=== PATIENT | female | born 1995 | race Caucasian/White ===

== ENCOUNTER 2023-11-07 13:14 | Outpatient (RCR) | payer BC, MEDICAID, SELFPAY | END 2024-02-05 23:59 | disposition home or self-care (01) | LOC: ANHDMC 13:14 | PROVIDERS: Visit Provider Student in an Organized Health Care Education/Training Program | DX: O24.419 Gestational diabetes mellitus in pregnancy, unspecified control (principal); Z3A.00 Weeks of gestation of pregnancy not specified; Z71.89 Other specified counseling | CPT/HCPCS: G0108 ==

== ENCOUNTER 2024-02-20 12:13 | Outpatient (RCR) | payer BC, MEDICAID, SELFPAY ==
[2024-02-06 10:08] VITALS: BP 104/56; PULSE 90
[2024-02-20 12:57] VITALS: BP 121/63; PULSE 80
== END 2024-05-06 23:59 | disposition home or self-care (01) ==
LOC: ANHOBOP 12:13
PROVIDERS: Visit Provider Obstetrics & Gynecology
DX: O24.419 Gestational diabetes mellitus in pregnancy, unspecified control (principal); Z3A.34 34 weeks gestation of pregnancy; Z3A.36 36 weeks gestation of pregnancy
CPT/HCPCS: 59025

== ENCOUNTER 2024-03-02 05:48 | Inpatient (IN) | payer BC, MEDICAID, SELFPAY ==
[2024-03-02] VITALS (143 sets, daily range): BP systolic 80–133; BP diastolic 35–102; PULSE 62–177; RESP 16–18; TEMP 36.1–37.4; O2SAT 87–100; BMI 49.1
--- NOTE | 2024-03-02 06:38 | PM.IMHP ---
H&P: HPI History of Present Illness Date/Time: 03/02/24 06:38 Chief Complaint: Medical Induction of Labor Narrative: Maria A is a 29yo @ 38.1wks who presents for medical IOL due to A2GDM. She has been following with MFM regularly and doing regular testing. She reports good movement. Irregular contractions. No VB or LOF. Her is complicated by: - Obesity- pre-preg BMI 50- ASA daily, MFM referral - A2GDM - MFM referral; on insulin 10u BID + 6u TIDAC - h/o IUFD at 8 mo- ASA daily, will start weekly BPP 28w; NST 2x/wk at 32w - tobacco/THC use Review of Systems Constitutional: Constitutional: Denies chills, Denies fever(s) and Denies headache(s) Eyes: Eyes: Denies change in vision ENT: Denies headache(s) Cardiovascular: Cardiovascular: Denies chest pain and Denies dyspnea Respiratory: Respiratory: Denies dyspnea Genitourinary: Genitourinary: Denies abnormal vaginal bleeding and Denies vaginal discharge Neurologic: Denies headache(s) Psychiatric: Psychiatric: Denies anxiety and Denies depression [facility] Past Medical History Medical History Abnormal glucose tolerance in History of stillbirth Suppression of menses Family History Family History Mother Diabetes mellitus Cerebrovascular accident Father Diabetes mellitus Other Heart disease Social History Social History Smoking packs per day: 0.5 Smoking cigarettes per day: 10.0 Years smoked: 7 Smoking pack-years: 3.50 Smoking status: Former smoker Tobacco type: cigarettes Second hand tobacco smoke exposure: Yes Alcohol intake: former Substance use: never Substance use type: marijuana Last use: unsure Do You Feel Safe in your Home?: Yes Lack of Transportation: YES Lack of Food: Sometimes True Current Housing: I Have Housing Concerned About Future Housing: No Difficulty Paying Gas/Electric Bills: No Difficulty Paying for Meds: No Currently Unemployed: No Education: High School Diploma/GED Difficulty w/ Childcare or Family Care: No Living arrangements: with family Occupation/Education: occupation Gender identity (if verbalized by the patient): Female Sexual Orientation (if Verbalized by the Patient): Straight or Heterosexual Spiritual care concerns: No Meds Home Medications and Allergies Home Medications Medication Instructions Recorded Confirmed Type vits no.126-ferrous fum 1 tablet PO DAILY 08/21/23 02/26/24 History 28 mg iron-folic acid 800 mcg tablet (Classic ) aspirin 81 mg chewable tablet 81 mg PO DAILY 09/25/23 02/26/24 History insulin aspart U-100 100 unit/mL 6 unit subcut USEASDIRECTD 11/20/23 02/26/24 History (3 mL) subcutaneous pen (Novolog FlexPen U-100 Insulin aspart) insulin glargine 100 unit/mL (3 10 unit subcut QPM 11/20/23 02/26/24 History mL) subcutaneous pen (Lantus Solostar U-100 Insulin) Allergies Allergy/AdvReac Type Severity Reaction Status Date / Time No Known Allergies Allergy Verified 02/26/24 15:17 Exam Const: General: cooperative, no acute distress and obese Nutritional Appearance: obese Orientation/consciousness: patient oriented x3 Resp: Effort & Inspection: normal respiratory effort Cardio: Rate: regular rate GI: GI Palp: No abdominal tenderness : Other: FHT's: 130's/ mod marva/ + accels/ no decels - cat 1 TOCO: irregular ctxs Cervix: 4/50/-2 Membranes: AROM, clear 0738 Presentation: cephalic Skin: General skin exam: normal color Neuro: General: patient oriented x3 Extrem: General: normal to inspection Psych: Appearance: grossly normal Affect: normal affect Attitude: cooperative Assessment and Plan Assessment and plan (1) Insulin dependent gestational diabetes mellitus (GDM),
[2024-03-02 06:49] LABS: Basophils Percent Auto 0.3 % (0.2-1.2); Eosinophils Absolute Auto 0.1 K/mm3 (0-0.3); Eosinophils Percent Auto 1.1 % (0-4.4); Hemoglobin 11.5 g/dL (12.0-15.0); Immature Granulocyte Absolute 0.02 K/mm3 (0.00-0.031); Immature Granulocyte Percent A 0.3 % (0-0.5); Lymphocytes Absolute Auto 1.69 K/mm3 (0.9-3.2); Lymphocytes Percent Auto 26.7 % (18.3-44.2); Mean Corpuscular HGB Conc 31.9 g/dl (32-36); Mean Corpuscular Hemoglobin 28.5 pg (26-34); Mean Corpuscular Volume 89.3 fl (80-100); Mean Platelet Volume 10.3 fl (7.4-10.4); Monocytes Absolute Auto 0.6 K/mm3 (0.1-0.6); Monocytes Percent Auto 9.3 % (2.6-8.5); Neutrophils Absolute Auto 3.9 K/mm3 (1.3-6.7); Neutrophils Percent Auto 62.3 % (45.5-73.1); Platelet Count Result 236 k/mm3 (150-375); Red Blood Count 4.03 M/mm3 (4.2-5.4); Red Cell Distribution Width 14.2 % (11.5-14.5); White Blood Count 6.3 K/mm3 (4.5-10.0)
[2024-03-02] MEDS: LACTATED RINGERS 1,000 ML 125 ML IV CONT (07:07)
[2024-03-02] MEDS: OXYTOCIN 30 UNITS/NS 500 ML 30 UNITS/500 ML BAG 6 UNITS IV CONT (07:08)
--- NOTE | 2024-03-02 07:11 | LDADM ---
This patient, Maria A Terry, was admitted to Labor/Delivery/Recovery 103 on 03/02/24 at 05:48. Plans for labor, pain management and were discussed with patient. Patient/family oriented to hospital policies and general routines including ID bracelet, bed and alarms, visiting hours, pain management, procedures, bathroom and other care routines, personal items, smoking policy, room service/diet and guest tray routines, security routines, and visiting hours. Patient/Family are encouraged to report perceived risks to care and to ask questions if they do not understand what they are told or what they should do. See OBIX for further documentation.
--- NOTE | 2024-03-02 07:40 | WPDHPUPDATE1 ---
History and Physical Update Update Date/Time: 03/02/24 07:40 History and Physical has been reviewed, including an updated exam of the patient. There are NO changes in the patient's condition. Risks, benefits, and alternatives have been discussed and questions answered. Patient agrees to proceed with procedure.
[2024-03-02 07:47] LABS: Glucose Point of Care 107 mg/dl (65-105)
[2024-03-02 08:00] LABS: HIV 1/2 Ab P24 Ag Result Negative (Negative)
[2024-03-02] MEDS: LACTATED RINGERS 1,000 ML 999 ML IV CONT (09:03)
[2024-03-02 09:14] LABS: Glucose Point of Care 89 mg/dl (65-105)
--- NOTE | 2024-03-02 09:38 | WPDANESEPP ---
Anes - Eval Pre Procedure Procedure: labor epidural Date/Time: 03/02/24 09:38 Surgeon: Viviane guo Preop Diagnosis: pain during labor Pre Op Diagnosis: IOL Patient Data Age: 29 Gender: F Height: 1.57 m Weight: 121.8 kg Last Vital Signs Temp 37.4 C 03/02/24 09:34 Pulse 177 H 03/02/24 09:31 BP 119/95 H 03/02/24 09:31 O2 Del Method Room Air 03/02/24 07:58 Allergies Allergy/AdvReac Type Severity Reaction Status Date / Time No Known Allergies Allergy Verified 02/26/24 15:17 Home Medications Medication Instructions Recorded Confirmed Type vits no.126-ferrous fum 1 tablet PO DAILY 08/21/23 02/26/24 History 28 mg iron-folic acid 800 mcg tablet (Classic ) aspirin 81 mg chewable tablet 81 mg PO DAILY 09/25/23 02/26/24 History insulin aspart U-100 100 unit/mL 6 unit subcut USEASDIRECTD 11/20/23 02/26/24 History (3 mL) subcutaneous pen (Novolog FlexPen U-100 Insulin aspart) insulin glargine 100 unit/mL (3 10 unit subcut QPM 11/20/23 02/26/24 History mL) subcutaneous pen (Lantus Solostar U-100 Insulin) Laboratory Tests 03/02/24 03/02/24 03/02/24 06:40 07:00 09:05 WBC 6.3 K/mm3 (4.5-10.0) RBC 4.03 L M/mm3 (4.2-5.4) Hgb 11.5 L g/dL (12.0-15.0) Hct 36.0 L % (37.0-47.0) MCV 89.3 fl (80-100) MCH 28.5 pg (26-34) MCHC 31.9 L g/dl (32-36) RDW 14.2 % (11.5-14.5) Plt Count 236 k/mm3 (150-375) MPV 10.3 fl (7.4-10.4) Immature Gran % (Auto) 0.3 % (0-0.5) Neut % (Auto) 62.3 % (45.5-73.1) Lymph % (Auto) 26.7 % (18.3-44.2) [place] % (Auto) 9.3 H % (2.6-8.5) Eos % (Auto) 1.1 % (0-4.4) Baso % (Auto) 0.3 % (0.2-1.2) Lymph # (Auto) 1.69 K/mm3 (0.9-3.2) [place] # (Auto) 0.6 K/mm3 (0.1-0.6) Eos # (Auto) 0.1 K/mm3 (0-0.3) Baso # (Auto) 0.0 K/mm3 (0.0-0.1) Abs Immat Gran (auto) 0.02 K/mm3 (0.00-0.031) Absolute Neuts (auto) 3.9 K/mm3 (1.3-6.7) Absolute Nucleated RBC 0.000 K/mm3 (0.0-0.012) Nucleated RBC % 0.0 % (0.0-0.2) POC Capillary Glucose 107 H mg/dl 89 mg/dl (65-105) (65-105) RPR Pending HIV 1&2 Ab/P24 Ag 4thGn Negative (Negative) Blood Type A Positive Antibody Screen Negative Patient hx anesthesia problems: none Family hx anesthesia problems: none Results Review: All pre-operative results and documents have been reviewed as part of the pre-operative evaluation. [facility] Past Medical History Medical History Abnormal glucose tolerance in History of stillbirth Suppression of menses Family History Family History Mother Diabetes mellitus Cerebrovascular accident Father Diabetes mellitus Other Heart disease Social History Social History Smoking packs per day: 0.5 Smoking cigarettes per day: 10.0 Years smoked: 7 Smoking pack-years: 3.50 Smoking status: Former smoker Tobacco type: cigarettes Second hand tobacco smoke exposure: Yes Alcohol intake: former Substance use: never Substance use type: marijuana Last use: unsure Do You Feel Safe in your Home?: Yes Lack of Transportation: YES Lack of Food: Sometimes True Current Housing: I Have Housing Concerned About Future Housing: No Difficulty Paying Gas/Electric Bills: No Difficulty Paying for Meds: No Currently Unemployed: No Education: High School Diploma/GED Difficulty w/ Childcare or Family Care: No Living arrangements: with family Occupation/Education: occupation Gender identity (if verbalized by the patient): Female Sexual Orientati
[2024-03-02 11:09] LABS: Glucose Point of Care 90 mg/dl (65-105)
--- NOTE | 2024-03-02 12:36 | PM.OBPNLAB ---
Pain Control Date/time seen: 03/02/24 12:36 Pain control: epidural Pelvic Exam Dilation (cm): 6 (-7) Effacement (%): 90 station: -2 Amniotic membrane status: Ruptured Contractions Monitor mode: Internal Contraction frequency: 3 Status status: Category l Assessment and Plan Pitocin rate (mU/min): 6 Assessment: active labor Plan: continuous present management
[2024-03-02 12:59] LABS: Glucose Point of Care 84 mg/dl (65-105)
[2024-03-02 13:17] LABS: Rapid Plasma Reagin Non-Reactive (NonReactive)
--- NOTE | 2024-03-02 14:35 | PM.OBPRVD ---
OB - Vaginal Delivery Note Procedure Delivery date: 03/02/24 Events: Gestational Diabetes (on insulin) Induction method: Per Pitocin Protocol Delivery augmentation: Rupture of Membranes Delivery monitor: External FHT and Internal Uterine Route of delivery: Laceration Description: Labial (bilateral) Delivery repair: vicryl Specimen: Yes (placenta) Quantitative Blood Loss (ml): 150 Anesthesia type: Epidural Disposition: Floor Complications: No immediate complications Baby Date of : 03/02/24 Time of : 14:16 Weeks of gestation at delivery: 38 (.1) gender: Male Weight (pounds): 6 Weight (ounces): 15 presentation: vertex Placenta delivery description: Expressed Cord Vessel Description: 3 Vessels and Clamped/Cut score one minute: 9 score five minutes: 9 Narrative: Anne-Marie progressed to complete dilation with strong desire to push. She pushed for approximately 30 minutes with good maternal effort. She delivered the head over intact perineum. No nuchal cord was palpated. She easily delivered the infant's shoulders and body without complication. He was immediately placed skin to skin but had decreased tone therefore the umbilical cord was doubly clamped and cut and he was handed off to the awaiting pediatric team. He was taken over to the warmer where cry was then immediately heard. A segment of cord was collected for cord gases. The remaining cord blood was collected for typing. With Pitocin running and gentle downward traction on the cord, the placenta delivered without complication. Bimanual massage was performed good uterine tone with minimal bleeding. She was examined and bilateral labial lacerations identified. They were repaired in the normal fashion using 3-0 Vicryl and found to be hemostatic. Bimanual massage was once again performed and a small amount of clots were removed but she was found to be firm with minimal bleeding. Sponge, lap, instrument, and needle counts were correct at the end the procedure. Mom and baby were left bonding in the birthing suite in stable condition.
[2024-03-02] MEDS: OXYTOCIN 30 UNITS/NS 500 ML 30 UNITS/500 ML BAG 125 UNITS IV CONT (14:45)
[2024-03-02] MEDS: WITCH HAZEL 40 PADS 1 PAD TOPICAL (17:57)
[2024-03-02] MEDS: BENZOCAINE 20% AER SPR (*SP) 56 GM CAN 1 SPRAY TOPICAL (17:58)
--- NOTE | 2024-03-02 18:08 | OBPPTRN ---
1723 Patient transferred to post room #281 via W/C. Support person present. Oriented to unit, room, information board, rooming in, admission packet and security measures. Patient verbalizes understanding.
[2024-03-03 03:50] LABS: Hematocrit 36.5 % (37.0-47.0); Hemoglobin 11.7 g/dL (12.0-15.0)
--- NOTE | 2024-03-03 06:41 | PM.OBPNVD ---
OB - PN: Subj Subjective Date/time seen: 03/03/24 06:41 Narrative: PPD#1 Anne-Marie reports doing well today. 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 Her pain is controlled. She is tolerating regular diet, voiding, passing gas, and ambulating without issues. She is breast feeding/supplementing. She would like her son circumcised, but he is currently on D10 IV fluids. OB - PN: Obj Data Labs 03/03/24 03:44 Labs: Laboratory Results - last 24 hr 03/02/24 03/02/24 03/02/24 06:40 07:00 09:05 WBC 6.3 RBC 4.03 L Hgb 11.5 L Hct 36.0 L MCV 89.3 MCH 28.5 MCHC 31.9 L RDW 14.2 Plt Count 236 MPV 10.3 Immature Gran % (Auto) 0.3 Neut % (Auto) 62.3 Lymph % (Auto) 26.7 [place] % (Auto) 9.3 H Eos % (Auto) 1.1 Baso % (Auto) 0.3 Lymph # (Auto) 1.69 [place] # (Auto) 0.6 Eos # (Auto) 0.1 Baso # (Auto) 0.0 Abs Immat Gran (auto) 0.02 Absolute Neuts (auto) 3.9 Absolute Nucleated RBC 0.000 Nucleated RBC % 0.0 POC Capillary Glucose 107 H 89 RPR Non-reactive HIV 1&2 Ab/P24 Ag 4thGn Negative Blood Type A Positive Antibody Screen Negative 03/02/24 03/02/24 03/03/24 11:04 12:54 03:44 WBC RBC Hgb 11.7 L Hct 36.5 L MCV MCH MCHC RDW Plt Count MPV Immature Gran % (Auto) Neut % (Auto) Lymph % (Auto) [place] % (Auto) Eos % (Auto) Baso % (Auto) Lymph # (Auto) [place] # (Auto) Eos # (Auto) Baso # (Auto) Abs Immat Gran (auto) Absolute Neuts (auto) Absolute Nucleated RBC Nucleated RBC % POC Capillary Glucose 90 84 RPR HIV 1&2 Ab/P24 Ag 4thGn Blood Type Antibody Screen OB - PN A/P Assessment and Plan (1) Normal vaginal delivery of second : Code(s): O80 - Encounter for full-term uncomplicated delivery Status: Acute Plan day: 1 Plan: routine care Comments: - PO pain meds - Regular diet - Ambulation and hydration encouraged - Continue putting baby to breast q2-3hr - Circumcision to be performed when not on IV fluids Time Spent With Patient Time: Total time spent is greater than 50% in coordination of care (as documented) at patient's floor/unit and/or counseling patient: Review of Systems Constitutional: Constitutional: Denies chills, Denies fever(s) and Denies headache(s) Eyes: Eyes: Denies change in vision ENT: Denies dizziness and Denies headache(s) Cardiovascular: Cardiovascular: Denies chest pain, Denies palpitations and Denies dyspnea Respiratory: Respiratory: Denies cough and Denies dyspnea Gastrointestinal: Gastrointestinal: Denies nausea and Denies vomiting Neurologic: Denies dizziness and Denies headache(s) Endocrine: Endocrine: Denies palpitations Exam Const: General: cooperative, comfortable and no acute distress Orientation/consciousness: patient oriented x3 Resp: Effort & Inspection: normal respiratory effort Auscultation: clear to auscultation bilaterally Cardio: Rate: regular rate GI: Inspection: non-distended GI Palp: No abdominal tenderness and Yes Soft to palpation Auscultation: normal bowel sounds : Other: fundus firm Skin: General skin exam: normal color Neuro: General: patient oriented x3 Extrem: General: normal to inspection Psych: Appearance: grossly normal Affect: normal affect Attitude: cooperative
[2024-03-03 07:20] VITALS: BP 141/71; PULSE 77; RESP 16; TEMP 37.4; O2SAT 100
[2024-03-03] MEDS: DOCUSATE SODIUM 100 MG CAPSULE PO (07:47)
[2024-03-03] MEDS: IBUPROFEN 600 MG TABLET PO ×2 (07:47→14:43)
[2024-03-03] MEDS: MULTIVIT/MIN/PREN/FOL AC/IRON TABLET 1 TAB PO (07:47)
--- NOTE | 2024-03-03 09:58 | PC.NURSE ---
[id number] Introductions were made, then consulted with patient to assess needs related to , pumping and protecting the milk supply. Discussed with mother her?plans to feed?her infant and the?experience so far. Infant is on IVF D10 and mother is not wanting to place infant [id number] related to infant having a broken clavicle. Resources provided for inpatient with RN LC name written on the communication board. Mother voiced understanding of information, will call if there is a request for assistance, however, at this time wants to pump and feed. services offered. Mother voiced understanding of the availability and how to contact LC.
--- NOTE | 2024-03-03 10:56 | WPDANLDPN2 ---
Anes-Prog Note L&D Date/Time: 03/03/24 10:56 Neuro status: Neuro function grossly intact. Cardiovascular status: normal Respiratory status: normal Airway patency: baseline Mental status: baseline Post-Op hydration status: normal Vital Signs: Last Vital Signs Temp 37.4 C 03/03/24 07:20 Pulse 77 03/03/24 07:20 Resp 16 03/03/24 07:20 BP 141/71 H 03/03/24 07:20 Pulse Ox 100 03/03/24 07:20 O2 Del Method Room Air 03/02/24 20:55 Pain score (VAS): 0 I/O: Intake & Output 03/02/24 03/03/24 03/03/24 23:59 07:59 15:59 Intake Total 240 Output Total 350 Balance -110 Post-procedural complaints: none Patient feedback: Patient satisfied with anesthetic care.
--- NOTE | 2024-03-03 15:19 | PC.NURSE ---
1200- Introductions were made, then consulted with patient Maria A to assess needs related to . Mother led the conversation with her?plans to feed?her infant and the?experience so far. Encouraged understanding of the benefits of skin to skin (demonstrating unwrapping and placing upright on her chest), stimulating with massage touch, changing positions to encourage wakefulness, how to watch for early feeding cues, responsive feeding, feeding on demand (aiming for 8-12 times in 24 hours, about every 2-3 hours), milk production, building a milk supply, duration of feeding, signs of adequate intake/output and how to record on the feeding sheet. Reviewed positioning and ear, shoulder, hip alignment, supporting the breast to facilitate a deep latch, asymmetrical latch (off-center), leading with the chin with a big, open, wide gape and body close to mother. Infant latched optimally to the right breast in cross cradle position. Education given to the mother of how to visualize the suckling (with good rocking jaw motion), swallows (dropping of the lower jaw) and how to listen for drinking at the breast (the ka sound). Mother verbalized she did not have any pain with the infants latch, maintained proper alignment of the breast but required continuous stimulation to stay awake and actively sucking. Reviewed comfort measures of healing with a warm, wet washcloth to rinse breast, then leave open to air-dry, good handwashing when or touching the breast/nipples to prevent infection. Mother voiced understanding of skin to skin, stimulating with massage touch, responsive feedings, hand expressed colostrum, talking to infant to encourage if it has been 2 -2.5 hours since the start of the last , to call if does not latch, or if there is discomfort with . Encouraged mom not to go longer than 3 hours feeding baby with at least 10-15 min of continuous . Encouraged mom to call again for her next pumping session to check that proper size flange in being used. Mother voiced understanding of information, demonstrated learning and will call if there is a request for assistance. Reported to the Primary RN.
[2024-03-03 22:42] VITALS: BP 97/58; PULSE 72; RESP 18; TEMP 36.9; O2SAT 98
--- NOTE | 2024-03-04 07:15 | PM.OBDSVD ---
DS: Admitting Diagnosis Discharge Date 03/04/24 Admitting Diagnosis A2GDM H/o demise DS: Discharge Diagnosis Discharge Diagnosis (1) Normal vaginal delivery of second : Code(s): O80 - Encounter for full-term uncomplicated delivery Status: Acute OB - DS: Summary OB Procedures : NST and Ultrasound OB Procedures Intrapartum: Spontaneous Vag Delivery OB Procedures: : None Peripartum Data Infant Delivery Method: Natural Vaginal Laceration Description: Labial (bilateral) Episiotomy description: None complications: none 1: Gender: Male Disposition of : home Status at Discharge Functional status at discharge: independent ambulation Overall status at discharge: patient is back to baseline Time Spent with Patient Time attestation: Total time spent providing and/or coordinating discharge services: Exam Const: General: cooperative, comfortable, no acute distress and obese Orientation/consciousness: patient oriented x3 Resp: Effort & Inspection: normal respiratory effort Auscultation: clear to auscultation bilaterally Cardio: Rate: regular rate GI: Inspection: non-distended GI Palp: No abdominal tenderness and Yes Soft to palpation Auscultation: normal bowel sounds : Other: fundus firm Skin: General skin exam: normal color Neuro: General: patient oriented x3 Extrem: General: normal to inspection Psych: Appearance: grossly normal Affect: normal affect Attitude: cooperative DS: Data Data Completed and Pending Pending studies at discharge: Pending at discharge 03/02/24 14:23 Surgical [PTH] Routine Labs on day of discharge: Labs from last 24 hours 03/03/24 03:44 Hgb 11.7 L Hct 36.5 L Discharge Plan Discharge Attending physician on discharge: Viviane Barlow Discharging Clinician: Viviane Barlow Anticipated Discharge Date/Time: 03/03/24 16:00 Patient Disposition: Home, Self-Care Activity: may shower and pelvic rest Diet: regular Patient Instructions: Vaginal Delivery (DC) Stand Alone Forms: General Discharge Information Follow-up/Referrals: Viviane Barlow MD [Physician] - 4 Weeks Discharge Medications: New acetaminophen 325 mg Tablet 650 mg PO Q6H PRN (Reason: Mild Pain (1-3) Or Headache) Qty: 60 0RF docusate sodium 100 mg Capsule 100 mg PO BID PRN (Reason: Constipation) Qty: 90 0RF ibuprofen 600 mg Tablet 600 mg PO Q6H PRN (Reason: Cramping) Qty: 40 0RF Continued Classic 28 mg iron- 800 mcg tablet 1 tablet PO DAILY Discontinued aspirin 81 mg tablet,chewable 81 mg PO DAILY insulin glargine [Lantus Solostar U-100 Insulin] 100 unit/mL (3 mL) insulin pen 10 unit subcut QPM insulin aspart U-100 [Novolog FlexPen U-100 Insulin] 100 unit/mL (3 mL) insulin pen 6 unit subcut USEASDIRECTD Rx Instructions: with each meal Date of admission: 03/02/24 05:48 Primary Care Provider: Isabela Sanchez Admitting Provider: Viviane Barlow Attending physician on admission: Viviane Barlow Condition: Stable
[2024-03-04 07:50] VITALS: BP 109/61; PULSE 82; RESP 18; TEMP 36.6; O2SAT 99
--- NOTE | 2024-03-04 08:00 | PCCCNOTE ---
Addendum entered by COREY Ramsay 03/04/24 13:36: Called by nursing as pt. will have a follow up OB appointment tomorrow at 11am. Spoke with pt. and she will not have transportation to hospital and back if the appointment is scheduled for that time. She will have transportation after 3pm but there are no appointments available at that time. Pt. reports she normally uses [employer] through her Medicaid for transportation services but this is too short of notice. Provided two cab vouchers for pt. to be picked up from her residence and dropped off after appointment. Pt.'s mother will be here today to transport pt. home after 3pm. Addendum entered by COREY Ramsay 03/04/24 08:03: Went ahead and provided Food resources to pt. as she had identified at admission ([facility]) that she was interested in area food [employer] and this information had not been provided to her. Original Note: Met with pt. and pt.'s mother. This is her first child. Pt. lives at home alone. Plans to breast feed and has pump at home for use. Has all necessary equipment for baby including a car seat, crib, diapers, clothing etc. Already signed up for [facility] services and has information to call [place] office at discharge. Has [employer] lined up. Does not have a PMD, information was provided for pt. to establish with one at discharge. Pt. reports she is interested in establishing with a provider to get onto control medication. Reported recreational marijuana use, neither pt. or baby was tested. Provided resources to pt. Also dropped off donation basket. Pt. denies any other needs.
--- NOTE | 2024-03-04 08:45 | PC.NURSE ---
Demonstrated to patient how to tape babies arm into a a split to support broken clavicle, mom verbalized understanding and return demonstrated. Informed patient that gas distribution plant operator, Dr. Ramos, would like this done until next gas distribution plant operator appointment in 1 week. Provided tape to patient to take home.
[2024-03-04] MEDS: DOCUSATE SODIUM 100 MG CAPSULE PO (08:49)
[2024-03-04] MEDS: MULTIVIT/MIN/PREN/FOL AC/IRON TABLET 1 TAB PO (08:49)
--- NOTE | 2024-03-04 09:05 | PC.NURSE ---
0830 - Report received from Dr. Ramos that patient declined assistance.
[2024-03-04 11:32] VITALS: BP 123/83; PULSE 82; RESP 18; TEMP 37.2; O2SAT 99
--- NOTE | 2024-03-04 14:00 | PC.NURSE ---
When discussing patients follow up appointment, patient informed me that she would not have transportation to and from her follow up appointment. This RN contacted care coordination for some transportation assistance. Care Coordination informed me that they do have cab vouchers for the patient and a transportation list of resources which were faxed over to this RN. This RN spoke with the patient about the options and she informed me that she was fine with taking the cab as long as she would have a voucher to and from the hopsital. This RN reached back out to care coordination who informed me that she would not be able to get 2 cab vouchers only one. After informing the patient of this the patient explained that she would do what she could to find a ride home if we provided a cab voucher to the hospital. This RN gave a return phone call to care coordination to discuss retrieving a cab voucher for this patient and was then told that since patient would already be discharged from the hospital. This RN reached out to her supervisor roller shop, Gautam Gibson, for assistance in the matter. This RN received a return phone call from care coordination that they would be over to speak with patient again. After they met with patient, patient informed this RN that she had been provided two cab vouchers for her follow up appointment tomorrow.
[2024-03-04] MEDS: IBUPROFEN 600 MG TABLET PO (14:46)
[2024-03-04] MEDS: TETANUS,DIPHTHERIA,AC PERTUSSIS ADULT (0.5 ML) BOOSTRIX IM (14:47)
[2024-03-05 11:31] VITALS: BP 119/74; PULSE 76; RESP 18; TEMP 36.6; O2SAT 99
== END 2024-03-04 15:52 | disposition home or self-care (01) | DRG 807 ==
LOC: ANHLDR 06:00 → ANHOB2 17:27
PROVIDERS: Admitting Provider Obstetrics & Gynecology; PCP Pediatrics; Visit Provider Obstetrics & Gynecology
DX: O24.424 Gestational diabetes mellitus in childbirth, insulin controlled (principal); Z37.0 Single live birth; Z3A.38 38 weeks gestation of pregnancy; O99.214 Obesity complicating childbirth; E66.9 Obesity, unspecified; O70.0 First degree perineal laceration during delivery
CPT/HCPCS: 36415; 82948; 85014; 85018; 85025; 86592; 86703; 86850; 86900; 86901; 88307; 90715; A9270; G0432; J2590; J2795; J7120